=== PATIENT | male | born 1945 | race Caucasian/White ===

== ENCOUNTER 2021-11-24 08:47 | Day surgery (SDC) | payer MEDICARE ==
[~2021-11-24] VITALS: Ht 172.7 cm; Wt 90.0 kg
[~2021-11-24 08:47] MED LIST: ASPI-1444 PO; CARV25TA32 PO; CLOP75TA60 PO; DICL75TA5 PO; FLUT44H IH; HYDR100T28 PO; LOSA100T58 PO; OMEP20CA12 PO; SIMV-46 PO; SODIUM CHLORIDE 0.9% 1,000 ML IV ONE; SODIUM CHLORIDE 0.9% 1,000 ML ONE; TAMS-13 PO; TIOT185 IH
[2021-11-24] MEDS ORDERED: DiphenhydrAMINE HCL 50 MG CAPSULE ONE (09:12)
[2021-11-24] MEDS ORDERED: DIAZEPAM 5 MG TABLET ONE (09:12)
[2021-11-24 09:13] LABS: COVID AG,FIA SOURCE NASAL SWAB
[2021-11-24 09:16] LABS: BASOPHILS % (AUTO) 0.6 % (0.0-2.0); EOSINOPHILS % (AUTO) 6.6 % (1.0-6.0); HEMATOCRIT 45.4 % (41-53); HEMOGLOBIN 14.9 g/dL (13.5-17.5); LYMPHOCYTES % (AUTO) 20.6 % (22.0-44.0); MEAN CORPUSCULAR HEMOGLOBIN 25.7 pg (26.0-34.0); MEAN CORPUSCULAR HGB CONC 32.8 G/dL (31.0-37.0); MEAN CORPUSCULAR VOLUME 78 fL (80-100); MONOCYTES # (AUTO) 1.3 K/uL (0.1-1.0); MONOCYTES % (AUTO) 13.3 % (2.0-9.0); NEUTROPHILS # (AUTO) 5.7 K/uL (1.8-7.7); NEUTROPHILS % (AUTO) 58.9 % (40.0-70.0); PLATELET COUNT (AUTO) 271 K/uL (150-450); RED BLOOD CELL COUNT(AUTO) 5.79 MIL/uL (4.50-5.90); RED CELL DISTRIBUTION WIDTH 16.5 % (11.5-14.5)
[2021-11-24 09:25] LABS: CALCIUM, TOTAL 8.6 mg/dL (8.8-10.5); CREATININE 1.4 mg/dL (0.60-1.30)
[2021-11-24] MEDS ORDERED: IPRA3AMP24 NEB (09:30)
[2021-11-24 09:31] LABS: ALBUMIN 3.5 g/dL (3.4-5.0); BILIRUBIN,TOTAL 1.4 mg/dL (0.1-1.0); CHOL/HDL RATIO 7.3 (4.2-7.3); TOTAL PROTEIN, SERUM 6.6 g/dL (6.4-8.2)
[2021-11-24] MEDS ORDERED: AMOX1TAB16 PO (09:33)
[2021-11-24] MEDS ORDERED: TRAM50TA4 PO (09:33)
[2021-11-24] MEDS ORDERED: ASPIRIN 81 MG CHEWABLE TABLET PO ONE (10:30)
[2021-11-24] MEDS ORDERED: DIAZEPAM 5 MG TABLET PO ONE (10:30)
[2021-11-24] MEDS ORDERED: DiphenhydrAMINE HCL 50 MG CAPSULE PO ONE (10:30)
[2021-11-24] MEDS ORDERED: IOHEXOL 300 MG/ML 50 ML VIAL ONE (12:07)
[2021-11-24] MEDS ORDERED: HEPARIN SODIUM 1000 UNITS/NS 1,000 ML ONE (12:07)
[2021-11-24] MEDS ORDERED: LIDOCAINE/PF 1% 30 ML VIAL ONE (12:07)
[2021-11-24] MEDS ORDERED: SODIUM BICARBONATE 50 MEQ/50 ML VIAL ONE (12:07)
[2021-11-24 12:26] VITALS: BP 186/85
[2021-11-24] MEDS ORDERED: FentaNYL CITRATE PF 100 MCG/2 ML VIAL ONE (12:42)
[2021-11-24] MEDS ORDERED: MIDAZOLAM HCL 2 MG/2 ML VIAL ONE (12:42)
[2021-11-24] MEDS ORDERED: FentaNYL CITRATE PF 100 MCG/2 ML VIAL IVP ONE ×3 (12:45→13:30)
[2021-11-24] MEDS ORDERED: MIDAZOLAM HCL 2 MG/2 ML VIAL IVP ONE ×3 (12:45→13:30)
[2021-11-24] MEDS ORDERED: HEPARIN SODIUM 1000 UNITS/NS 1,000 ML IARTER ONE (12:45)
[2021-11-24] MEDS ORDERED: IOHEXOL 300 MG/ML 50 ML VIAL IARTER ONE (12:45)
[2021-11-24] MEDS ORDERED: LIDOCAINE 1% 30 ML/SOD BICARB 8.4% 4 ML SQ ONE (12:45)
[2021-11-24] MEDS ORDERED: HEPARIN SODIUM,PORCINE 5,000 UNITS/ML VIAL IVP ONE (13:00)
[2021-11-24] MEDS ORDERED: HydrALAZINE HCL 20 MG/ML VIAL ONE (13:02)
[2021-11-24] MEDS ORDERED: NITROGLYCERIN 50 MG/D5% WATER 250 ML ONE (13:14)
[2021-11-24] MEDS ORDERED: HydrALAZINE HCL 20 MG/ML VIAL IVP ONE ×2 (13:15)
[2021-11-24] MEDS ORDERED: IOHEXOL 350 MG/ML 100 ML VIAL IARTER ONE (13:15)
[2021-11-24 13:30] VITALS: BP 175/85
[2021-11-24] MEDS ORDERED: NITROGLYCERIN/D5W 50 MG/250 ML IV BOTTLE ICOR ONE (13:30)
[2021-11-24 13:32] VITALS: BP 175/89
== END 2021-11-24 18:00 | disposition home or self-care (01) ==
LOC: CATHLAB 08:47
PROVIDERS: ATTEND Internal Medicine Interventional Cardiology
DX: I25.10 Atherosclerotic heart disease of native coronary artery without angina pectoris (principal); T82.855A Stenosis of coronary artery stent, initial encounter; J44.9 Chronic obstructive pulmonary disease, unspecified; E78.2 Mixed hyperlipidemia; E11.9 Type 2 diabetes mellitus without complications; E78.5 Hyperlipidemia, unspecified; I10 Essential (primary) hypertension; Z79.82 Long term (current) use of aspirin; Z79.899 Other long term (current) drug therapy; Z79.01 Long term (current) use of anticoagulants; Z85.6 Personal history of leukemia; Z98.890 Other specified postprocedural states; Y83.8 Other surgical procedures as the cause of abnormal reaction of the patient, or of later complication, without mention of misadventure at the time of the procedure
CPT/HCPCS: 93458; 80061; 80053; 85025; 85610; 85730; 36415; 99152; 99153; 93005; 92978; 92979; 87426; C1757; C1887; C1760; J3010; J1644; J0360; J3490 ×3; J2250; J7030; Q9967; C1753; C9803; 75960